=== PATIENT | female | born 1955 | race Caucasian/White ===

== ENCOUNTER 2025-02-21 14:39 | Outpatient (AMB) | payer BC, SELFPAY ==
--- NOTE | 2025-02-21 14:45 | A.OFFVIS_ITS ---
Vital Signs 02/21/25 14:48 Height 5 ft 5 in Weight 163 lb 2.273 oz BMI 27.1 BP 150/60 H Blood Pressure Location Rt brachial Position Sitting Pulse 80 Pulse Source Pulse Oximeter Pulse Oximetry (%) 99 Oxygen Delivery Method Room Air Intake Visit Reasons: Hx Lung CA/Emphysema Travel Attendants Required: No Solutions Executive Security: Solutions Executive Security offered & declined Accompanied by: Self / Same As Patient Allergies steroid Allergy (Intermediate, Uncoded 02/21/25 14:49) Swelling HPI Comments Details: the patient is here for pulmonary evaluation. The patient is a 69 year woman with a known history of tobacco dependency in the past in addition to lung cancer. Apparently back in 2020 the patient did have a 2 cm right-sided nodular density along with multiple other pulmonary nodules. The patient did have a PET scan that was mildly avid at 2.5 SUV. She did have diagnosis of adenocarcinoma. She did undergo surgery in [place] and underwent a segmentectomy. apparently at that time the patient did have multiple biopsies to make to make sure that they had the margins clear of any cancer. She actually did very good she has had CAT scans every 6 months after that and no evidence of any recurrence after such a minimal resection. The patient then apparently demonstrated a nodule that is been some concern and she has had CAT scans every 3 months for the last 2 times to follow-up this abnormal findings. It is not clear if this abnormal finding is a nodule that has grown from the past or a new nodule altogether. The size in the appearance is not available either. Will request the imaging studies from [facility] to view the images in assess the concerning nodule. At this time her next CAT scan is going to be in April. She really wants this nodule removed if possible. She will talk to her surgeon about that. In the meantime she does complaint of dyspnea on exertion. She feels breathlessness with some activity. She does exercise regularly. Her symptoms are wwdg-vz-utnqijov severity. She does have a rescue inhaler but she does not use it but she does not use it regularly. On exam she does have some diminished breath sounds with a prolonged expiratory phase. Will go ahead and start her Anoro as a trial and also the patient will require pulmonary function studies. Again, she is going to get her CT scan in [place] and will go ahead and request her previous CAT scans to review. She will follow-up sometime in April 2025 if any issues arise she can always call for further recommendations. [facility] Medical History (Updated 02/21/25 @ 22:01 by Dilan Wall MD) Emphysema lung Dyspnea Pulmonary nodules Lung cancer Social History Patient Tobacco Use Status: Former Tobacco user Review of Systems Const Denies fever(s) Eyes Reports no additional complaints ENT Reports nasal congestion and Reports nasal discharge Card Denies chest pain and Reports dyspnea on exertion Resp Reports dyspnea on exertion and Denies wheezing GI Reports no additional complaints Musc Reports myalgias Skin/Breast Denies rash Neuro Reports no additional complaints Endo Reports no additional complaints Juan R/Lymph Reports no additional complaints Aller/Immun Denies wheezing Physical Exam Const General: comfortable HEENT Head: Yes normocephalic Neck Neck: Yes supple Chest Chest palpation & inspection: normal inspection of the chest Resp Effort & Inspection: normal respiratory effort and prolonged expiratory phase Auscultation: diminished lung sounds Cardio Heart sounds: S1 normal heart sound present and S2 normal heart sound present GI Palpation (GI): Soft to palpation Skin General skin exam: no rashes or lesions noted Extrem General: Yes no clubbing, cyanosis or edema Assessment & Plan Assessment & Plan (1) Lung cancer: Code(s): C34.90 - Malignant neoplasm of unspecified part of unspecified bronchus or lung Category: Medical Qualifiers: Laterality: right Lung location: unspecified part of lung Qualified Code(s): C34.91 - Malignant neoplasm of unspecified part of right bronchus or lung (2) Pulmonary nodules: Code(s): R91.8 - Other nonspecific abnormal finding of lung field Category: Medical (3) Dyspnea: Code(s): R06.00 - Dyspnea, unspecified Category: Medical Qualifiers: Dyspnea type: dyspnea on exertion Qualified Code(s): R06.09 - Other forms of dyspnea (4) Emphysema lung: Code(s): J43.9 - Emphysema, unspecified Category: Medical Plan start Anoro short-acting beta agonist as needed pulmonary function studies requesting imaging studies previously done at [facility], specially to assess the nodular densities on the left repeat CAT scan 04/2025 follow-up in 2-3 months Medications: New umeclidinium-vilanterol 62.5-25 mcg/actuation (Anoro Ellipta) 1 inh inhalation DAILY 60 ea 11RF J44.89 - Other specified chronic obstructive pulmonary disease Coding Level of Care Code New Pt Level 4 (51868) Diagnoses Malignant neoplasm of right lung, unspecified part of lung C34.91 Laterality: right Lung location: unspecified part of lung Pulmonary nodules R91.8 Dyspnea on exertion R06.09 Dyspnea type: dyspnea on exertion Emphysema lung J43.9 Time Spent (min) 45
[2025-02-21 14:48] VITALS: BP 150/60; PULSE 80; O2SAT 99; BMI 27.1
--- OUTSIDE RECORDS SUMMARY | 2025-02-21 18:48 | XMS_ITS | Encounter Summary ---
Author Organization [facility] Address [address] [place] [address] Phone Care Team Providers Care Ops Analyst Name Role Phone Harish Delgado Primary Care Provider [phone] Encounter Details Date Type Department Care Team (Late Contact Info) Description 06/02/2022 Procedure Pass [facility] [address] [place] [address] Social History Tobacco Use Types Packs/Day Years Used Date Smoking Tobacco: Former Cigarettes 2 15 2 1986 Smokeless Tobacco: Never Alcohol Use Standard Drinks/Week Comments Yes 0 (1 standard drink = 0.6 oz pur e alcohol) rarely Comments No Sex and Gender Information Value Date Recorded Sex Assigned at Not on file Legal Sex Female 3:20 PM EDT Gender Identity Not on file Sexual Orientation Not on file Occupation Industry Job Start Date Job 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 04/19/2025 10:45 AM EST Office Visit [facility] 15 [facility] [address] [place] [address] Mica Wisdom MD [address] [place] [address] [email or web address] documented as of this encounter Visit Diagnoses Not on filedocumented in this encounter Additional Health Concerns Assessment Noted Time PHQ-2 Depression Total Score: 0 08/17/19 23 3:07 PM EDT documented as of this encounter Care Teams Ops Analyst Relationship Specialty Start Date End Date Harish Delgado DO [address] [place] [address] 18 [place] [address] PCP - General Internal Medicine 09/22/21 documented as of this encounter Additional Source Comments The information contained in this document represents components of the legal health record. It is not the complete legal health record.[facility]
--- OUTSIDE RECORDS SUMMARY | 2025-02-21 18:48 | XMS_ITS | Encounter Summary ---
Author Organization [facility] Address [address] [place] [address] Phone Care Team Providers Care Field Artillery Fire Control Man Name Role Phone Harish Delgado Primary Care Provider [phone] Encounter Details Date Type Department Care Team (Late st Contact Info) Description 08/17/2022 Procedure Pass [facility] [address] [place] [address] Social History Tobacco Use Types Packs/Day Years Used Date Smoking Tobacco: Former Cigarettes 2 15 1 972 - 1986 Smokeless Tobacco: Never Alcohol Use Standard Drinks/Week Comments Yes 0 (1 standard drink = 0.6 oz pur e alcohol) rarely Education Answer Date Recorded Are you interested in more education? Not on tori e 07/03/2022 Are you concerned about learning? Not on file 07/03/2022 No 07/03/2022 No 07/03/2022 Digital Access Answer Date Recorded No 07/29/2022 No 07/29/2022 Reliable internet access at home? Not on file 07/29/2022 Device with a working camera? 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 Not on file documented as of this encounter Plan of Treatment Upcoming Encounters Date Type Department Care Team (Late st Contact Info) Description 12/14/2024 Procedure Pass [facility] [address] [place] [address] 04/19/2025 9:30 AM EST Appointment [facility] [address] [place] [address] Mica Wisdom MD [address] [place] [address] [email or web address] 04/19/2025 10:45 AM EST Office Visit [facility] [address] [address] Mica Wisdom MD [address] [place] [address] [email or web address] documented as of this encounter Visit Diagnoses Not on filedocumented in this encounter Additional Health Concerns Assessment Noted Time PHQ-2 Depression Total Score: 0 02/15/20 23 2:49 PM EST documented as of this encounter Care Teams Field Artillery Fire Control Man Relationship Specialty Start Date End Date Harish Delgado DO [address] [place] [address] PCP - General Internal Medicine 09/22/21 documented as of this encounter Additional Source Comments The information contained in this document represents components of the legal health record. It is not the complete legal health record.[facility]
--- OUTSIDE RECORDS SUMMARY | 2025-02-21 18:48 | XMS_ITS | Encounter Summary ---
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 Not on file documented as of this encounter Plan of Treatment Upcoming Encounters Date Type Department Care Team (Late st Contact Info) Description 12/14/2024 Procedure Pass [facility] [address] [place] [address] 04/19/2025 9:30 AM EST Appointment [facility] [address] [place] [address] Mica Wisdom MD [address] [place] [address] [email or web address] 04/19/2025 10:45 AM EST Office Visit [facility] [address] [address] Mica Wisdom MD [address] [place] [address] [email or web address] documented as of this encounter Visit Diagnoses Not on filedocumented in this encounter Additional Health Concerns Assessment Noted Time PHQ-2 Depression Total Score: 0 03/23/19 25 10:09 AM EST documented as of this encounter Care Teams Advertising Teacher Relationship Specialty Start Date End Date Harish Delgado DO [address] [place] [address] PCP - General Internal Medicine 09/22/21 documented as of this encounter Additional Source Comments The information contained in this document represents components of the legal health record. It is not the complete legal health record.[facility]
--- OUTSIDE RECORDS SUMMARY | 2025-02-21 18:48 | XMS_ITS | Encounter Summary ---
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 Not on file documented as of this encounter Plan of Treatment Upcoming Encounters Date Type Department Care Team (Late st Contact Info) Description 12/14/2024 Procedure Pass [facility] [address] [place] [address] 04/19/2025 9:30 AM EST Appointment [facility] [address] [place] [address] Mica Wisdom MD [address] [place] [address] [email or web address] 04/19/2025 10:45 AM EST Office Visit [facility] [address] [address] Mica Wisdom MD [address] [place] [address] [email or web address] documented as of this encounter Visit Diagnoses Not on filedocumented in this encounter Additional Health Concerns Assessment Noted Time PHQ-2 Depression Total Score: 0 09/22/19 25 9:58 AM EDT documented as of this encounter Care Teams Site Safety Coordinator Relationship Specialty Start Date End Date Harish Delgado DO [address] [place] [address] PCP - General Internal Medicine 09/22/21 documented as of this encounter Additional Source Comments The information contained in this document represents components of the legal health record. It is not the complete legal health record.[facility]
--- OUTSIDE RECORDS SUMMARY | 2025-02-21 18:48 | XMS_ITS | Encounter Summary ---
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 Not on file documented as of this encounter Plan of Treatment Upcoming Encounters Date Type Department Care Team (Late st Contact Info) Description 12/14/2024 Procedure Pass [facility] [address] [place] [address] 04/19/2025 9:30 AM EST Appointment [facility] [address] [place] [address] Mica Wisdom MD [address] [address] [email or web address] 04/19/2025 10:45 AM EST Office Visit [facility] [address] [address] Mica Wisdom MD [address] [place] [address] [email or web address] documented as of this encounter Visit Diagnoses Not on filedocumented in this encounter Additional Health Concerns Assessment Noted Time PHQ-2 Depression Total Score: 0 09/05/19 24 2:18 PM EDT documented as of this encounter Care Teams Type Proof Reproducer Relationship Specialty Start Date End Date Harish Delgado DO [address] [place] [address] PCP - General Internal Medicine 09/22/21 documented as of this encounter Additional Source Comments The information contained in this document represents components of the legal health record. It is not the complete legal health record.[facility]
--- OUTSIDE RECORDS SUMMARY | 2025-02-21 18:49 | XMS_ITS | Encounter Summary ---
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 Not on file documented as of this encounter Plan of Treatment Upcoming Encounters Date Type Department Care Team (Late st Contact Info) Description 12/14/2024 Procedure Pass [facility] [address] [place] [address] 04/19/2025 9:30 AM EST Appointment [facility] [address] [place] [address] Mica iWsdom MD [address] [place] [address] [email or web address] 04/19/2025 10:45 AM EST Office Visit [facility] [address] [address] Mica Wisdom MD [address] [place] [address] [email or web address] documented as of this encounter Visit Diagnoses Not on filedocumented in this encounter Additional Health Concerns Assessment Noted Time PHQ-2 Depression Total Score: 0 12/15/19 25 10:01 AM EDT documented as of this encounter Care Teams Furniture Arranger Relationship Specialty Start Date End Date Harish Delgado DO [address] [place] [address] PCP - General Internal Medicine 09/22/21 documented as of this encounter Additional Source Comments The information contained in this document represents components of the legal health record. It is not the complete legal health record.[facility]
--- OUTSIDE RECORDS SUMMARY | 2025-02-21 18:49 | XMS_ITS | Continuity of Care Document ---
Author Organization [facility] [address] [place] [address] Phone [phone] Care Team Providers Care Airport Representative Name Role Phone Dia Enriquez Care Team Information Receiv er [phone] Harish Delgado M.D. Care Team Information Rece iver [phone] Problems Active Problems Provider Date Anxiety NOLA Jacques Onset: 2023 Essential hypertension NOLA Jacques Onset: 06/27/2023 Hypercholesterolemia NOLA Jacques Onset: 0 06/27/2023 Social History Type Date Description Comments Sex Female Sex Unknown ETOH Use Never used alcohol Tobacco Use Start: Unknown End: Unknown Patient is a former smoker Medications Active Medications SIG Qnty Indications Ordering Provider Date Levothyroxine Ttufxq72mma Tablets 1 by mouth every day Unknown Jujikbkhfpa63dk Tablets 1 by mouth every day Unknown Njezuoizi4ug Tablets take 1 tablet by mouth every day at bedtime as needed Unknown Qdsmgehzlb70yc Capsules DR 1 by mouth every day Unknown Vital Signs Date Vital Result Comment 08/02/2023 10:40am BP Systolic 122 mmHg BP Diastolic 68 mmHg Heart Rate 68 /min Height 65 inches 5'5 Weight 155.00 lb BMI (Body Mass Index) 25.8 kg/m2 Results Test Acquired Date Facility Test Result H/L Range N ote Calcium 08/02/2023 [facility] Calcium 9.4 mg/dL 8.7-10.3 N-Telopeptide, Urine 06/30/2023 [facility] N-Telopeptide 325 nmolBCE Not Estab. Creatinine, Urine 65.8 mg/dL Not Estab. N-Telo/Creat. Ratio 56 nMBCE/mMCr 0-89 Interpretive Guide: See Comment: 1 Alkaline Phosphatase 06/29/2023 [facility] Alkaline Phosphatase 105 IU/L 44-121 Vitamin D, 25-Hydroxy 06/29/2023 [facility] Vitamin D, 25-Hydroxy 37.3 ng/mL 30.0-100. 0 2 PTH, Intact 06/29/2023 [facility] PTH, Intact 19 pg/mL 15-65 Phosphorus 06/29/2023 [facility] Phosphorus 3.4 mg/dL 3.0-4.3 N-Telopeptide, Urine 06/29/2023 [facility] N-Telopeptide TNP nmolBCE 3 Creatinine, Urine TNP mg/dL 4 N-Telo/Creat. Ratio TNP nMBCE/mMCr 5 Interpretive Guide: See Comment: 6 Request Problem 06/29/2023 [facility] Request Problem TNP 7 No Urine Received 06/29/2023 [facility] No Urine Received TNP 8 1 The N-telopeptide an d Creatinine are used to calculate the N-telo/Creat. Ratio which is referred to as NTx . Suggested guidelines for the clinical use of NTx are as follows: 1. Menopausal Women not on Hormone Replacement Therapy (HRT): Women with a baseline NTx value >38 are at significant risk for a decrease in bone mineral density (BMD) after 1 year compared to women on HRT. The probability of a decline in BMD increases with NTx value as follows: (1): Baseline NTx Probability of Decrease in BMD 18- 38 1.4 p=0.28 38- 51 2.5 p=0.03 51- 67 3.8 p=0.0006 67-188 17.3 p=0.0001 2. Menopausal Women Receiving Antiresorptive Therapy: The probability that treatment is effective after three months is increased when the measured NTx value is <or=38 nM BCE/mM BACKUP ENGINEER, or NTx has decreased >or=30% from baseline.[1] 3. Patients with Paget's Disease of Bone: The probability that treatment is effective after one month is increased when the measured NTx value is within the reference range, or NTx has decreased >or=30% from baseline.[2] 1. Dena AVERY, Bella NH, Mitchell PETERSEN, et al. Am J Med, 102:29-37,1997. (1):M757, 1996. 2. Bone H, Lauren J, et al. J Bone Min Res.11(1):M757,1996 2 Vitamin D deficiency has been defined by the [place] of Medicine and an Endocrine Society practice guideline as a level of serum 25-OH vitamin D less than 20 ng/mL (1,2). The Endocrine Society went on to further define vitamin D insufficiency as a level between 21 and 29 ng/mL (2). 1. IOM ([place] of Medicine). 2010. Dietary reference intakes for calcium and D. [place]: The National AcademSubtech Press. 2. Claribel MF, Jason GONZALES, Jeramie MONTALVO, et al. Evaluation, treatment, and prevention of vitamin D deficiency: an Endocrine Society clinical practice guideline. JCEM. 2010; 96(7):1911-30. 3 Test not performed. No urine specimen received. 4 Test not performed. No specimen received. 5 Unable to calculate result since non-numeric result obtained for component test. 6 The N-telopeptide an d Creatinine are used to calculate the N-telo/Creat. Ratio which is referred to as NTx . Suggested guidelines for the clinical use of NTx are as follows: 1. Menopausal Women not on Hormone Replacement Therapy (HRT): Women with a baseline NTx value >38 are at significant risk for a decrease in bone mineral density (BMD) after 1 year compared to women on HRT. The probability of a decline in BMD increases with NTx value as follows: (1): Baseline NTx Probability of Decrease in BMD 18- 38 1.4 p=0.28 38- 51 2.5 p=0.03 51- 67 3.8 p=0.0006 67-188 17.3 p=0.0001 2. Menopausal Women Receiving Antiresorptive Therapy: The probability that treatment is effective after three months is increased when the measured NTx value is <or=38 nM BCE/mM BACKUP ENGINEER, or NTx has decreased >or=30% from baseline.[1] 3. Patients with Paget's Disease of Bone: The probability that treatment is effective after one month is increased when the measured NTx value is within the reference range, or NTx has decreased >or=30% from baseline.[2] 1. Dena CH, Bella NH, Mitchell GS, et al. Am J Med, 102:29-37,1996. (1):M757, 1995. 2. Bone H, Lauren J, et al. J Bone Min Res.11(1):M75,1995 7 Test not performed. No specimen received. TEST: [id number] Creatinine, Urine Panel: [id number] 8 Test not performed. No urine specimen received. TEST: [id number] N-Telopeptide Panel: [id number] Medical Devices Description No Information Available Encounters Type Date Location Provider Dx Diagnosis Office Visit 08/02/2023 10:45a Main Office NOLA Jacques M81.0 Age-related osteoporosis w/o current pathological fracture Assessments Date Code Description Provider 08/02/2023 M81.0 Age-related oste oporosis without current pathological fracture NOLA Jacques Plan of Treatment No Information Available Functional Status Description No Information Available Mental Status Description No Information Available Referrals Refer to Dr Reason for Referral Status Appt Ling Marroquin PA Created / [address] [place] [address] [address] [place] [address] [phone]
--- OUTSIDE RECORDS SUMMARY | 2025-02-21 18:49 | XMS_ITS | Encounter Summary ---
Author Organization [facility] Address [address] [place] [address] Phone Care Team Providers Care Scalper Operator Name Role Phone Harish Delgado DO Primary Care Provider [phone] Encounter Details Date Type Department Care Team ([facility] Contact Info) Description 10/09/2021 Ancillary Orders VIRTUAL DEPARTMENT [address] [place] [address] Trista Wallace MD [address] [place] [phone] [email or web address] Social History Tobacco Use Types Packs/Day Years Used Date Smoking Tobacco: Former Cigarettes 0.5 15 1 974 - 1988 Alcohol Use Standard Drinks/Week Comments Yes 0 (1 standard drink = 0.6 oz pur e alcohol) rarely Comments Unknown Sex and Gender Information Value Date Recorded Sex Assigned at Not on file Legal Sex Female 3:20 PM EDT Gender Identity Not on file Sexual Orientation Not on file documented as of this encounter Plan of Treatment Upcoming Encounters Date Type Department Care Team ([facility] Contact Info) Description 12/14/2024 Procedure Pass [facility] [address] [place] [address] 04/19/2025 9:30 AM EST Appointment [facility] [address] [place] [address] Mica Wisdom MD [address] [place] [address] [email or web address] 04/19/2025 10:45 AM EST Office Visit [facility] [address] [facility] [address] [place] [address] Mica Wisdom MD [address] [place] [address] [email or web address] documented as of this encounter Results * NM PET Whole Body Outside (No Interpretation) (09/28/2021 12:00 AM EDT) Other Narrative SHELBY - 10/09/2021 1:23 PM EDT This study is for PACS storage only and not for interpretation. J Gareth Wallace MD IMG OUTSIDE IMAGING W/OUT INTE RPRETATION Final Result [facility] documented in this encounter Visit Diagnoses Not on filedocumented in this encounter Care Teams Scalper Operator Relationship Specialty Start Date End Date Harish Delgado DO [address] [place] [address] 18 [place] [address] PCP - General Internal Medicine 09/22/21 documented as of this encounter Additional Source Comments The information contained in this document represents components of the legal health record. It is not the complete legal health record.[facility]
--- OUTSIDE RECORDS SUMMARY | 2025-02-21 18:49 | XMS_ITS | Clinical Summary ---
Author Organization [facility] Address [address] [place] [address] Phone Care Team Providers Care Paint Prepper Name Role Phone Danny Harishkarly ENRIQUE Primary Care Provider [phone] Surgical History Surgery Date Site/Laterality Comments OTHER SURGICAL HISTORY PROCEDURE: HISTORY OTHER; COMMENT: HEAD TRAUMA -HEMORRHAGE OTHER SURGICAL HISTORY PROCEDURE: HISTORY OTHER; COMMENT: L SHOULDER FRACTURE REPAIR OTHER SURGICAL HISTORY PROCEDURE: HISTORY OTHER; COMMENT: APPENDECTOMY OTHER SURGICAL HISTORY PROCEDURE: HISTORY OTHER; COMMENT: TONSILLECTOMY OTHER SURGICAL HISTORY PROCEDURE: HISTORY OTHER; COMMENT: FACE LIFT / NECK LIFT 2021 OTHER SURGICAL HISTORY PROCEDURE: HISTORY OTHER; COMMENT: RLL BOIPSY -ADENOCARCINOMA OTHER SURGICAL HISTORY PROCEDURE: HISTORY OTHER; COMMENT: RLL SEGMENTECTOMY 2021 Medical History Medical History Date Comments Hypothyroidism DX:Hypothyroidis m Migraine DX:Migraine Anxiety DX:Anxiety Anemia DX:Anemia GERD (gastroesophageal reflux disease) DX:GERD (gastroesophageal reflux disease) Lung cancer ([facility] V24, [facility] V28) DX:Lung cancer ([facility]) Pneumonia DX:Pneumonia COPD (chronic obstructive pu lmonary disease) ([facility] V24, [facility] V28) DX:COPD (chronic o bstructive pulmonary disease) ([facility]) Pleural effusion DX:Pleural effu marcy Social History Tobacco Use Types Packs/Day Years Used Date Smoking Tobacco: Former Smokeless Tobacco: Never Alcohol Use Standard Drinks/Week Comments Not Currently 0 (1 standard drink = 0.6 oz pur e alcohol) Comments Unknown Sex and Gender Information Value Date Recorded Sex Assigned at Not on file Legal Sex Female 9:48 PM EST Gender Identity Not on file Sexual Orientation Not on file Last Filed Vital Signs Vital Sign Reading Time Taken Comments Blood Pressure 136/56 11/29/2023 8:15 AM EDT Pulse 73 11/29/2023 8:15 AM EDT Temperature - - Respiratory Rate - - Oxygen Saturation - - Inhaled Oxygen Concentration - - Weight 71.2 kg (157 lb) 11/29/2023 8:15 AM EDT Height 165.1 cm (5' 5 ) 11/29/2023 8:15 AM EDT Body Mass Index 26.13 11/29/2023 8:15 AM EDT Plan of Treatment Health Maintenance Due Date Last Done Comments Breast Cancer Screening 1955 Colorectal Cancer Screening: Colonoscopy 1955 DTaP,Tdap,and Td Vaccines (1 - Tdap) 12/28/1975 Zoster Vaccines (1 of 2) 12/28/1975 Pneumococcal Vaccine: 50+ Years (2 of 2 - PCV) 09/19/2007 09/18/2006 Falls Risk Assessment 02/06/2022 Hepatitis C Screening 02/06/2022 Medicare Annual Wellness Visit 02/06/2022 Osteoporosis Screening (Bone Density Screening) 02/06/2022 Social Influencers of Health Screening 02/06/2022 Depression Screening 03/07/2024 COVID-19 Vaccine ( season) 2024 02/04/2022, 07/01/2021, 12/31/2020, Additional history exists Hypertension/CHF/CAD Annual BMP Blood Test 12/05/2025 12/05/2024, 06/13/2024 Cholesterol Screening (Lipid Panel) 12/05/2029 12/05/2024, 06/13/2024 RSV Immunization Adult Patients Completed 01/03/2024 Influenza Vaccine Completed 11/27/2024, , 12/02/2022, Additional history exists HIB Vaccines Aged Out No longer eligi ble based on patient's age to complete this topic HPV Vaccines Aged Out No longer eligi ble based on patient's age to complete this topic Hepatitis A Vaccines Aged Out No long er eligible based on patient's age to complete this topic Hepatitis B Vaccines Aged Out No long er eligible based on patient's age to complete this topic IPV Vaccines Aged Out No longer eligi ble based on patient's age to complete this topic MMR Vaccines Aged Out No longer eligi ble based on patient's age to complete this topic Meningococcal ACWY Vaccine Aged Out N o longer eligible based on patient's age to complete this topic Meningococcal B Vaccine Aged Out No l onger eligible based on patient's age to complete this topic RSV Immunization Patients Under 20 months Aged Out No longer eligible based on patient's age to complete this topic Varicella Vaccines Aged Out No longer eligible based on patient's age to complete this topic Procedures Procedure Name Priority Date/Time Associated Diagnosis Comments THYROID STIMULATING HORMONE Routine 12/05/2024 12:31 PM EDT Myxedema heart disease Essential hypertension, malignant Hyperlipemia BASIC METABOLIC PANEL Routine 12/05/2024 12:31 PM EDT Myxedema heart disease Essential hypertension, malignant Hyperlipemia CREATINE KINASE Routine 12/05/2024 12:31 PM EDT Myxedema heart disease Essential hypertension, malignant Hyperlipemia ASPARTATE AMINOTRANSFERASE Routine 12/05/2024 12:31 PM EDT Myxedema heart disease Essential hypertension, malignant Hyperlipemia ALANINE AMINOTRANSFERASE Routine 025 12:31 PM EDT Myxedema heart disease Essential hypertension, malignant Hyperlipemia LIPID PANEL WITH REFLEX TO DIRECT LDL Routine 12/05/2024 12:31 PM EDT Myxedema heart disease Essential hypertension, malignant Hyperlipemia from Last 3 Months Results * Lipid panel with reflex to direct LDL (12/05/2024 12:31 PM EDT) Cholesterol 195 0 - 200 mg/dL LAB CHEMISTRY METHOD 12/05/2024 5:05 PM EDT [facility] Triglycerides 91 0 - 150 mg/dL LAB CHEMISTRY METHOD 12/05/2024 5:05 PM T [facility] HDL 82 >=40 mg/dL LAB CHEMISTRY METHOD 12/05/2024 5:05 PM T [facility] LDL Calculated 95 0 - 100 mg/dL LAB CHEMISTRY METHOD 12/05/2024 5:05 PM EDT [facility] Comment:Estimated LDL Calcul ated using equation: Total cholesterol - HDL cholesterol - (Triglycerides/5) VLDL Cholesterol Edmundo 18.2 mg/dL LAB CHEMISTRY METHOD 12/05/2024 5:05 PM EDT [facility] Non HDL Chol. (LDL+VLDL) 113 <145 mg/dL LAB CHEMISTRY METHOD 12/05/2024 5:05 PM EDT [facility] Chol/HDL Ratio 2.4 0.0 - 4.4 LAB CHEMISTRY METHOD 12/05/2024 5:05 PM EDT [facility] Blood Venous blood specimen / Unknown Venipuncture / Unknown 12/05/2024 12:31 PM EDT 12/05/2024 12:31 PM EDT us Megha Jung NP LAB BLOOD ORDERABLES Fi nal Result Performing Organization Address City/[facility]/ZIP Co de Phone Number [facility] [address] [place] [address], [place] [phone] * Alanine aminotransferase (12/05/2024 12:31 PM EDT) ALT (SGPT) 20 10 - 60 unit/L LAB CHEMISTRY METHOD 12/05/2024 5:02 PM EDT [facility] Blood Venous blood specimen / Unknown Venipuncture / Unknown 12/05/2024 12:31 PM EDT 12/05/2024 12:31 PM EDT us Megha Jung NP LAB BLOOD ORDERABLES Fi nal Result [facility] [address] [place] [address], [place] [phone] * Aspartate aminotransferase (12/05/2024 12:31 PM EDT) AST (SGOT) 15 10 - 42 unit/L LAB CHEMISTRY METHOD 12/05/2024 5:02 PM EDT [facility] Blood Venous blood specimen / Unknown Venipuncture / Unknown 12/05/2024 12:31 PM EDT 12/05/2024 12:31 PM EDT us Megha Jung NP LAB BLOOD ORDERABLES Fi nal Result Performing Organization Address [facility] Co de Phone Number [facility] [address] [place] [address], [place] [phone] * Thyroid stimulating hormone (12/05/2024 12:31 PM EDT) Pathologist [facility] TSH 1.04 0.40 - 4.00 mcIU/mL LAB CHEMISTRY METHOD 12/05/2024 5:50 PM EDT [facility] Blood Venous blood specimen / Unknown Venipuncture / Unknown 12/05/2024 12:31 PM EDT 12/05/2024 12:31 PM EDT us Megha Jung NP LAB BLOOD ORDERABLES Fi nal Result Performing Organization Address [facility] de Phone Number [facility] [address] [place] [address], [place] [phone] * Creatine kinase (12/05/2024 12:31 PM EDT) Pathologist [facility] Total CK 71 22 - 269 unit/L LAB CHEMISTRY METHOD 12/05/2024 5:02 PM EDT [facility] Blood Venous blood specimen / Unknown Venipuncture / Unknown 12/05/2024 12:31 PM EDT 12/05/2024 12:31 PM EDT us Megha Jung NP LAB BLOOD ORDERABLES Fi nal Result Performing Organization Address City/[facility]/ZIP Co de Phone Number [facility] [address] [place] [address], [place] [phone] * Basic metabolic panel (12/05/2024 12:31 PM EDT) Sodium 135 133 - 145 mmol/L LAB CHEMISTRY METHOD 12/05/2024 5:02 PM [facility] Potassium 4.0 3.5 - 5.5 mmol/L LAB CHEMISTRY METHOD 12/05/2024 5:02 PM [facility] Chloride 101 96 - 110 mmol/L LAB CHEMISTRY METHOD 12/05/2024 5:02 PM [facility] CO2 28 21 - 32 mmol/L LAB CHEMISTRY METHOD 12/05/2024 5:02 PM [facility] Anion Gap 6 3 - 11 LAB CHEMISTRY METHOD 12/05/2024 5:02 PM [facility] Glucose 90 70 - 100 mg/dL LAB CHEMISTRY METHOD 12/05/2024 5:02 PM [facility] BUN 11 5 - 25 mg/dL LAB CHEMISTRY METHOD 12/05/2024 5:02 PM [facility] Creatinine 0.67 0.50 - 1.10 mg/dL LAB CHEMISTRY METHOD 12/05/2024 5:02 PM [facility] eGFR 96 >=60 mL/min/1. 73m2 LAB CHEMISTRY METHOD 12/05/2024 5:02 PM [facility] Comment:Calculation based on the Chronic Kidney Disease Epidemiology Collaboration (CKD-EPI) equation refit without adjustment for race. BUN/Creatinine Ratio 16.4 LAB CHEMISTRY METHOD 12/05/2024 5:02 PM [facility] Calcium 9.4 8.5 - 10.5 mg/dL LAB CHEMISTRY METHOD 12/05/2024 5:02 PM [facility] Blood Venous blood specimen / Unknown Venipuncture / Unknown 12/05/2024 12:31 PM EDT 12/05/2024 12:31 PM EDT us Megha Jung INVENTORY ASSOCIATE LAB BLOOD ORDERABLES Fi nal Result [facility] ([facility]) [facility] [address] [place] [address], [place] [phone] from Last 3 Months Insurance [employer] - [place] MEDICARE ADVANTAGE Care Teams Paint Prepper Relationship Specialty Start Date End Date Harish Delgado DO [address] [place] [phone] PCP - General Internal Medicine 07/08/17
--- OUTSIDE RECORDS SUMMARY | 2025-02-21 18:49 | XMS_ITS | Encounter Summary ---
Author Organization [facility] Address [address] [place] [phone] Phone Care Team Providers Care Multiple Resaw Operator Name Role Phone Harish Delgado DO Primary Care Provider [phone] Encounter Details Date Type Department Care Team (Late Contact Info) Description 10/26/2021 Prep for Surgery [facility] [address] [address] Birdie [email or web address] Social History Tobacco Use Types Packs/Day Years Used Date Smoking Tobacco: Former Cigarettes 2 15 1 972 - 1987 Smokeless Tobacco: Never Alcohol Use Standard Drinks/Week Comments Yes 0 (1 standard drink = 0.6 oz pur e alcohol) rarely Comments Unknown Sex and Gender Information Value Date Recorded Sex Assigned at Not on file Legal Sex Female 3:20 PM EDT Gender Identity Not on file Sexual Orientation Not on file Occupation Industry Job Start Date Job End 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[employer] Not on file Not on file Not on file documented as of this encounter Plan of Treatment Upcoming Encounters Date Type Department Care Team (Late st Contact Info) Description 12/14/2024 Procedure Pass [facility] [address] [place] [address] 04/19/2025 9:30 AM EST Appointment [facility] [address] [place] [address] Mica Wisdom MD [address] [place] [address] [email or web address] 04/19/2025 10:45 AM EST Office Visit [facility] [address] [facility] [address] [place] [address] Mica Wisdom MD [address] [place] [address] [email or web address] documented as of this encounter Visit Diagnoses Not on filedocumented in this encounter Additional Health Concerns Assessment Noted Time PHQ-2 Depression Total Score: 2 10/20/19 22 2:49 PM EDT documented as of this encounter Care Teams Multiple Resaw Operator Relationship Specialty Start Date End Date Harish Delgado DO [address] [place] [address] 18 [place] [address] PCP - General Internal Medicine 09/22/21 documented as of this encounter Additional Source Comments The information contained in this document represents components of the legal health record. It is not the complete legal health record.[facility]
--- OUTSIDE RECORDS SUMMARY | 2025-02-21 18:49 | XMS_ITS | Encounter Summary ---
Author Organization [facility] Address [address] [place] [address] Phone Care Team Providers Care Software Reliability Engineer Name Role Phone Harish Delgado DO Primary Care Provider [phone] Encounter Details Date Type Department Care Team (Late st Contact Info) Description 10/09/2021 Ancillary Orders [facility] [place] [address] [place] [address], [address] [place] [address] Trista Wallace MD [address] [place] [phone] [email or web address] Social History Tobacco Use Types Packs/Day Years Used Date Smoking Tobacco: Former Cigarettes 0.5 15 1 974 - 1989 Alcohol Use Standard Drinks/Week Comments Yes 0 [...] st Contact Info) Description 12/14/2024 Procedure Pass [facility] [address] [place] [address] 04/19/2025 9:30 AM EST Appointment [facility] [address] [place] [address] Mica Wisdom MD [address] [place] [address] [email or web address] 04/19/2025 10:45 AM EST Office [facility] [address] [facility] [address] [place] [address] Mica Wisdom MD [address] [place] [address] [email or web address] documented as of this encounter Visit Diagnoses Not on filedocumented in this encounter Care Teams Software Reliability Engineer Relationship Specialty Start Date End Date Harish Delgado DO [address] [place] [address] [address] [place] [address] PCP - General Internal Medicine 09/22/21 documented as of this encounter Additional Source Comments The information contained in this document represents components of the legal health record. It is not the complete legal health record.[facility]
--- OUTSIDE RECORDS SUMMARY | 2025-02-21 18:49 | XMS_ITS | Clinical Summary ---
Author Organization [facility] Address [address] [place] [phone] Phone Care Team Providers Care Lead Oxide Mill Tender Name Role Phone DannyHarish Primary Care Provider Allergies Active Allergy Reactions Criticality Noted Date Comments Prednisone Swelling 10/08/2021 Medications levothyroxine (SYNTHROID,LEVO THROID) 25 MCG tablet Take 25 mcg by mouth every morning. 2 Active sertraline (ZOLOFT) 50 MG tablet Take 50 mg by mouth daily. 2 Active simvastatin (ZOCOR) 40 MG tablet Take 40 mg by mouth daily. 2 Active omeprazole (PRILOSEC) 20 MG capsule Take 20 mg by mouth daily. Active meclizine (ANTIVERT) 25 mg tablet Take 25 mg by mouth as needed for nausea. Active acetaminophen (TYLENOL) 500 MG tablet Take 2 tablets (1,000 mg total) by mouth every 6 (six) hours. 0 2 Active ibuprofen (ADVIL,MOTRIN) 600 MG tablet Take 1 tablet (600 mg total) by mouth every 6 (six) hours. 56 tablet 2 Active Additional Information Patient not taking.Reported on 11/09/2021 senna (SENOKOT) 8.6 mg tablet Take 2 tablets by mouth 2 (two) times a day. 56 tablet 2 Active gabapentin (NEURONTIN) 100 MG capsule Take 3 capsules (300 mg total) by mouth every 8 (eight) hours. 90 capsule 2 Active Additional Information Patient not taking.Reported on 11/09/2021 LORazepam (ATIVAN) 1 MG tablet Take 1 tablet (1 mg total) by mouth every 6 (six) hours as needed. Hold lorazepam while on narcotic pain medications 2 Active traMADoL (ULTRAM) 50 mg tablet Take 0.5-1 tablets (25-50 mg total) by mouth every 6 (six) hours as needed. 120 tablet 2 Active lisinopril (PRINIVIL,ZESTR IL) 10 MG tablet Take 1 tablet by mouth every morning. 3 Active amLODIPine (NORVASC) 5 MG tablet Take 1 tablet by mouth every morning. 3 Active albuterol sulfate 90 mcg/actuation aebs Inhale into the lungs. 2 Active butalbital-acet aminophen-caffe ine (FIORICET, ESGIC) 50-325-40 mg per tablet as needed. 5 Active Active Problems Problem Noted Date Diagnosed Date Pleural effusion 11/09/2021 Primary lung adenocarcinoma, right 11/02/2021 Encounters Date Type Department Care Team Description 12/14/2024 10:30 AM EDT Office Visit [facility] [address] [address] Mica Wisdom MD Malignant neoplasm of lower lobe of right lung (Primary Dx) 12/14/2024 8:39 AM EDT - 12/14/2024 11:59 PM EDT Hospital Encounter [facility] [address] [place] [address] Mica Wisdom MD Discharge Disposition: Home or Self Care 12/14/2024 Orders Only [facility] [address] [address] Tavon Murry Malignant neoplasm of lower lobe of right lung (Primary Dx) 09/21/2024 Procedure Pass [facility] [address] [place] [address] from Last 3 Months Family History Medical History Relation Comments Heart disease Brother Stroke Father Heart disease Mother Leukemia Sister Relation Status Comments Brother Father Mother (Age 36) Sister Social History Tobacco Use Types Packs/Day Years Used Date Smoking Tobacco: Former Cigarettes 2 15 1 972 - 1986 Smokeless Tobacco: Never Tobacco Cessation:Counseling Given: Not Answered Alcohol Use Standard Drinks/Week Comments Yes 0 [...] Date Job 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 file Not on file Last Filed Vital Signs Vital Sign Reading Time Taken Comments Blood Pressure 129/60 12/14/2024 10:02 AM EDT Pulse 73 12/14/2024 10:02 AM EDT Temperature 36.6 C (97.8 F) 12/14/2024 10:02 AM EDT Respiratory Rate 16 12/14/2024 10:02 AM EDT Oxygen Saturation 100% 12/14/2024 10:02 AM EDT Inhaled Oxygen Concentration - - Weight 73.9 kg (163 lb) 12/14/2024 10:02 AM EDT Height 165.1 cm (5' 5 ) 12/14/2024 10:02 AM EDT Body Mass Index 27.12 12/14/2024 10:02 AM EDT Plan of Treatment Upcoming Encounters Date Type Department Care Team (Late st Contact Info) Description 12/14/2024 Procedure Pass [facility] [address] [place] [address] 04/19/2025 9:30 AM EST Appointment [facility] [address] [place] [address] Mica Wisdom MD [address] [place] [address] [email or web address] 04/19/2025 10:45 AM EST Office Visit [facility] 15 [facility] [address] [place] [address] Mica Wisdom MD [address] [place] [address] [email or web address] Health Maintenance Due Date Last Done Comments Adult Td,Tdap Booster 1955 HEPATITIS C SCREENING 1974 ZOSTER VACCINES (1 of 2) 12/28/1975 MAMMOGRAM 1996 COLOGUARD 2001 COLONOSCOPY 2001 COLORECTAL CANCER SCREENING 2001 FIT TEST 2001 FOBT 2001 SIGMOIDOSCOPY 2001 VIRTUAL COLONOSCOPY 2001 PNEUMOCOCCAL VACCINES (50+ years) (2 of 2 - PCV) 09/19/2007 09/18/2006 OSTEOPOROSIS SCREENING INITIAL (ONE-TIME) 2021 CREATININE LEVEL 11/10/2022 11/10/2021, 07/2021, 11/03/2021, Additional history exists POTASSIUM LEVEL 11/10/2022 11/10/2021, 0907/2021, 11/03/2021, Additional history exists COVID-19 VACCINE ( season) 2024 02/04/2022, 07/01/2021, 12/31/2020, Additional history exists SCREENING FOR DIABETES 11/09/2024 11/09/2021 TSH LEVEL 12/05/2025 12/05/2024, 06/13/2024 DEPRESSION SCREENING 12/14/2025 12/14/2024 LIPID PANEL 12/05/2029 12/05/2024, 06/13/2024 RSV VACCINE Completed 01/03/2024 SMOKING STATUS SCREENING (Once After 26 Yrs) Completed 09/21/2024 INFLUENZA VACCINE Completed 11/27/2024, , 12/02/2022, Additional history exists HEPATITIS A VACCINES Aged Out No long er eligible based on patient's age to complete this topic HIB VACCINES Aged Out No longer eligi ble based on patient's age to complete this topic MENINGOCOCCAL VACCINES (ACWY) Aged Out No longer eligible based on patient's age to complete this topic MENINGOCOCCAL VACCINES (B) Aged Out N o longer eligible based on patient's age to complete this topic Medical Devices Implanted Type Area Special Projects Coordinator Device Identifier Shelf Expiration Date Model / Serial / Lot Bar Left Arm 2 Dental Implants Bottom Procedures Procedure Name Priority Date/Time Associated Diagnosis Comments CT CHEST WITHOUT CONTRAST Routine 12/14/2024 8:47 AM EDT Malignant neoplasm of lower lobe of right lung BASIC METABOLIC PANEL (BMP) Routine 11/10/2021 5:43 AM EDT from Last 3 Months or Most Recently Relevant to Health Maintenance Results * CT CHEST WITHOUT CONTRAST (12/14/2024 8:47 AM EDT) Anatomical Region Laterality Modality Chest Computed Tomogra phy 12/14/2024 9:06 AM EDT Impressions 12/14/2024 10:42 AM EDT 1. Postsurgical changes from right lower lobe superior segmentectomy. No evidence of recurrence. 2. Similar multiple sub-solid nodules, likely adenocarcinoma spectrum lesions. ATTESTATION: Dasha Salvador, as teaching physician have reviewed the images, if any, for this patient's exam, and if necessary, have edited the report originally created by Dariana Sanchez. Narrative 12/14/2024 10:[address] CHEST WITHOUT CONTRAST Referring clinician's provided indication for this examination in Epic: * Unknown primary, initial workup TECHNIQUE: Multidetector CT of the chest was performed without intravenous contrast using tailored dose modulation. COMPARISON: CT CHEST WITHOUT CONTRAST FINDINGS: Devices/Tubes/Lines: None. Lungs: Stable postsurgical changes from right lower lobe superior segmentectomy with unchanged appearance of the surgical resection margin. Compare to September 2024 CT, similar size of multiple sub-solid nodules, for example, 8 mm ground-glass left lower lobe nodule (4:183), 9 mm part-solid posterior right upper lobe nodule with 3 mm solid component (4:162), and 4 mm ground-glass nodules in both upper lobes (4:148, 4:112). Unchanged focal scarring in the posterior right lower lobe. Upper lung predominant paraseptal emphysema. Similar biapical scarring. Pleura: No pleural effusion or pneumothorax. Mediastinum: The heart size is normal. No pericardial effusion. Similar atherosclerotic calcification of the thoracic aorta and its proximal branches. Moderate amount of coronary calcifications. Small hiatal hernia. Mildly patulous esophagus. Lymph Nodes: No enlarged supraclavicular, axillary, mediastinal, or hilar lymph nodes. Upper Abdomen: Colonic diverticulosis. Arterial vascular calcification. Absence of intravenous contrast limits sensitivity for detecting solid organ findings. Chest Wall: No chest wall mass. Bones: Multilevel degenerative changes of the imaged spine. Postsurgical change left humerus with associated streak artifact. Remote left rib fractures. Bones are osteopenic. Procedure Note Dasha Camejo MD - 12/14/2024 CT CHEST WITHOUT CONTRAST Referring clinician's provided indication for this examination in Epic: *Unknown primary, initial workup TECHNIQUE: Multidetector CT of the chest was performed without intravenouscontrast using tailored dose modulation. COMPARISON: CT CHEST WITHOUT CONTRAST FINDINGS: Devices/Tubes/Lines: None. Lungs: Stable postsurgical changes from right lower lobe superiorsegmentectomy with unchanged appearance of the surgical resection margin.Compare to September 2024 CT, similar size of multiple sub-solid nodules, forexample, 8 mm ground-glass left lower lobe nodule (4:183), 9 mm part-solidposterior right upper lobe nodule with 3 mm solid component (4:162), and 4mm ground-glass nodules in both upper lobes (4:148, 4:112). Unchangedfocal scarring in the posterior right lower lobe. Upper lung predominantparaseptal emphysema. Similar biapical scarring. Pleura: No pleural effusion or pneumothorax. Mediastinum: The heart size is normal. No pericardial effusion. Similaratherosclerotic calcification of the thoracic aorta and its proximalbranches. Moderate amount of coronary calcifications. Small hiatal hernia.Mildly patulous esophagus. Lymph Nodes: No enlarged supraclavicular, axillary, mediastinal, or hilarlymph nodes. Upper Abdomen: Colonic diverticulosis. Arterial vascular calcification.Absence of intravenous contrast limits sensitivity for detecting solidorgan findings. Chest Wall: No chest wall mass. Bones: Multilevel degenerative changes of the imaged spine. Postsurgicalchange left humerus with associated streak artifact. Remote left ribfractures. Bones are osteopenic. IMPRESSION: 1. Postsurgical changes from right lower lobe superior segmentectomy. Noevidence of recurrence. 2. Similar multiple sub-solid nodules, likely adenocarcinoma spectrumlesions. ATTESTATION: I, Dasha Camejo, as teaching physician have reviewed theimages, if any, for this patient's exam, and if necessary, have edited thereport originally created by Dariana Sanchez. Mica Haley MD IMG CT CHEST Final Result * (ABNORMAL) Basic metabolic panel (11/10/2021 5:43 AM EDT) SODIUM 138 136 - 145 mmol/L [facility] POTASSIUM 4.1 3.4 - 5.1 mmol/L [facility] CHLORIDE 102 98 - 107 mmol/L [facility] CO2 24 22 - 31 mmol/L [facility] BUN 12 6 - 23 mg/dL [facility] CREATININE 0.78 0.50 - 1.20 mg/dL [facility] GLUCOSE 141(H) 70 - 100 mg/dL [facility] CALCIUM 8.7(L) 8.8 - 10.7 mg/dL [facility] EGFR 85 >59 mL/min/1.7 3m2 [facility] Comment:Estimated glomerular filtration rate calculated using the CKD-EPI refit equation. ANION GAP 12 7 - 17 mmol/L [facility] Blood 11/10/2021 5:43 AM EDT 11/10/2021 6:02 AM EDT Gareth Rojas MD, MPH LAB BLOOD BKR ORDER PHIL Final Result [facility] [address] [place] [address] from Last 3 Months or Most Recently Relevant to Health Maintenance Insurance [place] BL[place] Advance Directives For more information, please contact: [phone] (9AM - 5PM [facility], Tuesday-Tuesday) * Full Code (Latest Code Status on File) Date Activated Date Inactivated Comments 11/02/2021 6:20 PM Question Answer Comments Code Status Confirmed With: Patient Care Teams Lead Oxide Mill Tender Relationship Specialty Start Date End Date Harish Delgado DO [address] [place] [id number] PCP - General Internal Medicine 09/22/21 Additional Source Comments The information contained in this document represents components of the legal health record. It is not the complete legal health record.[facility]
--- OUTSIDE RECORDS SUMMARY | 2025-02-21 18:49 | XMS_ITS | Encounter Summary ---
Author Organization [facility] Address [address] [place] [phone] Phone Care Team Providers Care Salt Machine Operator Name Role Phone Harish Delgado Primary Care Provider [phone] Encounter Details Date Type Department Care Team (Late st Contact Info) Description 11/02/2021 Procedure Pass [facility] Per[facility] [address] [place] [address] Social History Tobacco Use Types Packs/Day Years Used Date Smoking Tobacco: Former Cigarettes 2 15 972 1986 Smokeless Tobacco: Never Alcohol Use Standard Drinks/Week Comments Yes 0 (1 standard drink = 0.6 oz pur e alcohol) rarely Comments No Sex and Gender Information Value Date Recorded Sex Assigned at Not on file Legal Sex Female 3:20 PM EDT Gender Identity Not on file Sexual Orientation Not on file Occupation Industry Job Start Date Job 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 Wish to be (Past 1 Month) No 022 6:41 PM EDT Meño Erickson, VIDYA 2. Non-Specific Active Suici leida Thoughts (Past 1 Month) No 11/02/2021 6:41 PM EDT Jeremiah Erickson RN 6. Suicidal Behavior (Lifetime) No 08/29/202 2 6:41 PM EDT Meño Erickson, VIDYA documented as of this encounter Plan of Treatment Upcoming Encounters Date Type Department Care Team (Late st Contact Info) Description 12/14/2024 Procedure Pass [facility] [address] [place] [phone] 04/19/2025 9:30 AM EST Appointment [facility] [address] [place] [address] Mica Wisdom MD [address] [place] [phone] [email or web address] 04/19/2025 10:45 AM EST Office Visit [facility] [address] [address] Mica Wisdom MD [address] [place] [address] [email or web address] documented as of this encounter Visit Diagnoses Not on filedocumented in this encounter Additional Health Concerns Assessment Noted Time PHQ-2 Depression Total Score: 2 10/20/19 22 2:49 PM EDT documented as of this encounter Care Teams Salt Machine Operator Relationship Specialty Start Date End Date RickiNessa da silvano [address] [place] [id number] PCP - General Internal Medicine 09/22/21 documented as of this encounter Additional Source Comments The information contained in this document represents components of the legal health record. It is not the complete legal health record.[facility]
--- OUTSIDE RECORDS SUMMARY | 2025-02-21 18:49 | XMS_ITS | Clinical Summary ---
Author Organization [facility] Prior to 08/04/[address] [place] [address] Care Team Providers Care Inspection Machine Tender Name Role Phone Harish Delgado DO Primary Care Provider [phone] Allergies Active Allergy Reactions Criticality Noted Date Comments Other 07/08/2017 Patient states steroids - Make her face swell Medications Medication Sig Dispensed Refills Start Date End Date Status SUMAtriptan (IMITREX) 50 MG tablet Take 50 mg by mouth every 2 (two) hours as needed for migraine. 0 Active butalbital-acetaminoph en-caffeine (FIORICET, ESGIC) 50-325-40 MG per tablet Take 1 tablet by mouth every 6 (six) hours as needed for pain. 0 Active levothyroxine (SYNTHROID, LEVOXYL) tablet 25 mcg Take 25 mcg by mouth every morning on an empty stomach. 0 Active omeprazole (PRILOSEC) 20 MG capsule Take 20 mg by mouth daily. 0 Active meclizine (ANTIVERT) 25 MG tablet Take 25 mg by mouth daily. 0 Active LORazepam (ATIVAN) 1 MG tablet Take 1 mg by mouth as needed. 0 Active simvastatin (ZOCOR) tablet 20 mg Take 20 mg by mouth every night at bedtime. 0 Active Active Problems No known active problems Family History Medical History Relation Name Comments Heart disease Brother No Sig Med Hx Daughter 1 No Sig Med Hx Daughter 2 Stroke Father from strok e Heart disease Mother YOUNG Leukemia Sister CML on gleevac Relation Name Status Comments Brother Alive Daughter 1 Alive Daughter 2 Alive Father Mother Sister Alive Son in car Acc ident Social History Tobacco Use Types Packs/Day Years Used Date Smoking Tobacco: Former Cigarettes 1.5 15 Q uit: 07/09/1987 Smokeless Tobacco: Never Sex and Gender Information Value Date Recorded Sex Assigned at Not on file Gender Identity Not on file Sexual Orientation Not on file Last Filed Vital Signs Vital Sign Reading Time Taken Comments Blood Pressure 129/60 07/08/2017 2:23 PM EDT Pulse 65 07/08/2017 2:23 PM EDT Temperature - - Respiratory Rate - - Oxygen Saturation - - Inhaled Oxygen Concentration - - Weight 65.6 kg (144 lb 9.6 oz) 07/08/2017 2:23 P M EDT Height 165.1 cm (5' 5 ) 07/08/2017 2:23 PM EDT Body Mass Index 24.06 07/08/2017 2:23 PM EDT Plan of Treatment Health Maintenance Due Date Last Done Comments Hepatitis C Screening 1955 COVID-19 Vaccine (#1) 06[birth year]27/1956 Depression Screening 1968 Preventative Health Evaluation 1974 DTap / Tdap / Td (1 - Tdap) 12/28/1975 Colon Cancer Screening (Colonoscopy) 2001 Breast Cancer Screening (Mammogram) 2006 Shingrix-Zoster Vaccine (1 of 2) 2006 Fall Risk Assessment 2021 Osteoporosis Screening (DEXA Scan) 2021 Pneumococcal Vaccine (1 of 1 - PCV) 2021 Influenza Vaccine (#1) 2024 RSV Adult > 60+ Yrs or Pregn ant (1 - 1-dose 75+ series) 12/28/2031 Hepatitis B Vaccines Aged Out No long er eligible based on patient's age to complete this topic RSV Ped < 20 months Aged Out No longe r eligible based on patient's age to complete this topic Care Teams Inspection Machine Tender Relationship Specialty Start Date End Date Harish Delgado DO [address] [place] [id number] PCP - General Internal Medicine 07/08/17
== END 2025-02-21 15:31 | disposition home or self-care (01) ==
LOC: HO.HPS 14:40
PROVIDERS: PCP Internal Medicine; Referring Provider Internal Medicine; Visit Provider Hospitalist
DX: C34.91 Malignant neoplasm of unspecified part of right bronchus or lung (principal); R91.8 Other nonspecific abnormal finding of lung field; R06.09 Other forms of dyspnea; J43.9 Emphysema, unspecified
CPT/HCPCS: 99204